=== PATIENT | female | born 1975 | race Asian ===

== ENCOUNTER 2023-10-05 09:10 | Outpatient (CLI) | payer BC | END 2023-10-05 09:11 | disposition home or self-care (01) | LOC: CSHMAMMO 09:10 | PROVIDERS: ATTEND Physician Assistant | DX: R92.8 Other abnormal and inconclusive findings on diagnostic imaging of breast (principal); N63.23 Unspecified lump in the left breast, lower outer quadrant | CPT/HCPCS: G0279 ==